=== PATIENT | male | born 1935 | race Caucasian/White ===

== ENCOUNTER 2017-04-14 13:49 | Day surgery (SDC) | payer MEDICARE, MEDICAID ==
[~2017-04-14] VITALS: Ht 172.7 cm; Wt 66.3 kg
[2017-04-14] VITALS (9 sets, daily range): BP systolic 80–116; BP diastolic 48–72; PULSE 63–102; TEMP 98.8–99.1
[~2017-04-14 13:49] MED LIST: 00186-0370-20 IH; ALBUTEROL0.09 MG/A4 IH; ARICEPT ODT10 MG PO; ARICEPT ODT5 MG PO; ATIVAN 0.50.5 MG/TAB PO; CELEXA40 MG PO; CODEINE; COLACE 100100 MG/CAP PO; COUMADIN 5MG5 MG/TAB PO; LANOXIN 0.25M0.25 MG PO; LORTAB 5/500 501 TAB PO; MIRALAX119G PO; MULTIPLE VITAMI1 CAP PO; NAMENDA XR PO; NAMENDA5 MG PO; NEURONTIN100 MG/CAP PO; NORCO 325 MG-51 TAB PO; OPTIVE OP; PYRIDIUM 100MG100 MG PO; PYRIDIUM200 M1 PO; TESSALON P100 MG/CAP PO; TOPAMAX50 MG PO; TYLENOL 500MG500 MG PO; TYLENOL EXTRA500 M1 PO; TYLENOL PM EXTR1 CAP PO; TYLENOL W/COD1 UDTAB PO; ULTRAM 50MG TAB50 MG PO; ZANTAC 150MG T150 MG PO; ZOCOR 40MG40 MG PO; ZYLOPRIM 100MG100 MG PO; ZYPREXA2.5 MG PO; ZYRTEC 10MG10 MG PO; [UNRECOGNIZED DRUG - OTHER]
[2017-04-14] MEDS ORDERED: PULMICORT0.25 MG/2 IH ×2 (15:19→15:20)
[2017-04-14] MEDS ORDERED: IPRATROPIUM BROM3 M1 IH (15:23)
[2017-04-14] MEDS ORDERED: PROVENTIL0.09 MG/A1 IH (15:24)
[2017-04-14] MEDS ORDERED: MAALOX ADVANCE148 ML PO (15:32)
[2017-04-14] MEDS ORDERED: MILK OF MA400 MG/52 PO (15:33)
[2017-04-14] MEDS ORDERED: NORCO 325 MG-51 TAB PO (15:35)
[2017-04-14] MEDS ORDERED: CELEXA40 MG PO (15:40)
[2017-04-14] MEDS ORDERED: CLARITIN 1010 MG/TAB PO (15:42)
[2017-04-14] MEDS ORDERED: FENTANYL 12MCG TD (15:45)
[2017-04-14] MEDS ORDERED: FOSAMAX 70MG TA70 MG PO (15:47)
[2017-04-14] MEDS ORDERED: LASIX 40MG TABL40 MG PO (15:48)
[2017-04-14] MEDS ORDERED: ATIVAN 1MG T1 MG/TAB PO (15:50)
[2017-04-14] MEDS ORDERED: MELATONIN5 M1 SL (15:51)
[2017-04-14] MEDS ORDERED: NAMENDA XR PO (15:55)
[2017-04-14] MEDS ORDERED: NICODERM C21 MG/PATC TD (15:56)
[2017-04-14] MEDS ORDERED: ZYPREXA2.5 MG PO (15:57)
[2017-04-14] MEDS ORDERED: ELIQUIS 2.5 PO (16:03)
[2017-04-14] MEDS ORDERED: CIPRO 500MG TA500 MG PO (16:06)
[2017-04-14] MEDS ORDERED: BEVESPI AEROS10.7 GM IH (16:06)
[2017-04-14] MEDS ORDERED: K-DUR 10 MEQ T10 MEQ PO (16:08)
[2017-04-14 17:08] LABS: BASO % 0.3 % (0.0-2.0); EOS # 0.5 (0.0-0.7); EOS % 7.2 % (0-4.0); GRAN # 4.9 (1.4-6.5); GRAN % 69.7 % (42.2-75.2); HEMATOCRIT 36.5 % (42.0-52.0); LYMPH % 13.9 % (20.0-51.0); MEAN CELL VOLUME 95 fl (80.0-100.0); MEAN CORPUSCULAR HEMOGLOBIN 31 pg (27.0-31.0); MEAN CORPUSCULAR HGB CONC 33 g/dl (33.0-37.0); MEAN PLATELET VOLUME 10.7 fl (7.4-10.4); MONO # 0.6 (0.1-0.6); MONO % 8.6 % (1.7-9.3); PLATELET COUNT 146 K/mm3 (130-400); RED BLOOD COUNT 3.83 M/mm3 (4.20-5.60); WHITE BLOOD COUNT 7.1 K/mm3 (4.8-10.8)
[2017-04-14 17:12] LABS: CALCIUM 9.2 mg/dL (8.4-10.2); CREATININE, serum 1.2 mg/dL (0.66-1.25); POTASSIUM 3.8 mmol/L (3.4-5.0)
[2017-04-15 00:20] VITALS: BP 132/85; PULSE 91; TEMP 98.9
== END 2017-04-15 00:50 | disposition home or self-care (01) ==
LOC: SDCO 13:49 → SURG 17:25 → SDCO 04-15 00:50
PROVIDERS: Urology
DX: N13.2 Hydronephrosis with renal and ureteral calculous obstruction (principal); I25.2 Old myocardial infarction; I11.0 Hypertensive heart disease with heart failure; I50.9 Heart failure, unspecified; Z95.0 Presence of cardiac pacemaker; I38 Endocarditis, valve unspecified; J44.9 Chronic obstructive pulmonary disease, unspecified; K21.9 Gastro-esophageal reflux disease without esophagitis; R12 Heartburn; G30.9 Alzheimer's disease, unspecified; F02.80 Dementia in other diseases classified elsewhere, unspecified severity, without behavioral disturbance, psychotic disturbance, mood disturbance, and anxiety; F32.9 Major depressive disorder, single episode, unspecified; F41.9 Anxiety disorder, unspecified; Z87.39 Personal history of other diseases of the musculoskeletal system and connective tissue; I25.10 Atherosclerotic heart disease of native coronary artery without angina pectoris; E78.00 Pure hypercholesterolemia, unspecified; Z85.828 Personal history of other malignant neoplasm of skin; Z79.01 Long term (current) use of anticoagulants
CPT/HCPCS: OP; C1769; C2617; J0690; J1100; J2270; J2405; J2704; J3010; Q9967

== ENCOUNTER 2017-04-29 08:48 | Observation (INO) | payer MEDICARE, MEDICAID ==
[~2017-04-29] VITALS: Ht 172.7 cm; Wt 64.8 kg
[2017-04-29] VITALS (10 sets, daily range): BP systolic 91–117; BP diastolic 54–855; PULSE 57–105; TEMP 98–98.5
[~2017-04-29 08:48] MED LIST changes: +ATIVAN 1MG T1 MG/TAB PO; +BEVESPI AEROS10.7 GM IH; +CIPRO 500MG TA500 MG PO; +CLARITIN 1010 MG/TAB PO; +ELIQUIS 2.5 PO; +FENTANYL 12MCG TD; +FOSAMAX 70MG TA70 MG PO; +IPRATROPIUM BROM3 M1 IH; +K-DUR 10 MEQ T10 MEQ PO; +LASIX 40MG TABL40 MG PO; +MAALOX ADVANCE148 ML PO; +MELATONIN5 M1 SL; +MILK OF MA400 MG/52 PO; +NICODERM C21 MG/PATC TD; +PROVENTIL0.09 MG/A1 IH; +PULMICORT0.25 MG/2 IH
[2017-04-29] MEDS ORDERED: CEFACLOR PO (10:04)
[2017-04-29] MEDS ORDERED: FOSAMAX 70MG TA70 MG PO (10:57)
[2017-04-29] MEDS ORDERED: MULTI VITAMINS1 TAB PO (10:59)
[2017-04-29] MEDS ORDERED: ELIQUIS 5MG PO (11:04)
[2017-04-29 17:22] LABS: HEMATOCRIT 34.1 % (42.0-52.0); HEMOGLOBIN 10.6 g/dl (13.5-18.0); MEAN CELL VOLUME 97 fl (80.0-100.0); MEAN CORPUSCULAR HEMOGLOBIN 30 pg (27.0-31.0); MEAN CORPUSCULAR HGB CONC 31 g/dl (33.0-37.0); MEAN PLATELET VOLUME 10.1 fl (7.4-10.4); PLATELET COUNT 167 K/mm3 (130-400); REDCELL DISTRIBUTION WIDTH-CV 13.6 % (11.5-14.5)
[2017-04-29 17:33] LABS: ALBUMIN 3.4 gm/dL (3.5-5.0); BILIRUBIN,TOTAL 0.5 mg/dL (0.0-1.0); CALCIUM 8.8 mg/dL (8.4-10.2); CREATININE, serum 0.91 mg/dL (0.66-1.25); POTASSIUM 4.8 mmol/L (3.4-5.0); TOTAL PROTEIN 6.6 gm/dL (6.4-8.2)
[2017-04-29 17:44] LABS: BAND 6 % (0-10); EOSINOPHIL 1 % (0-4); LYMPHOCYTE 8 % (20.0-51.0); NEUTROPHILS 83 % (42.0-75.2); PLATELET ESTIMATE NORMAL (NORMAL)
[2017-04-29 18:02] LABS: TSH w REFLEX 0.873 uIU/mL (0.465-4.680)
[2017-04-30 01:40] VITALS: BP 91/54; PULSE 74; TEMP 98.6
[2017-04-30 05:33] VITALS: BP 93/53; PULSE 73; TEMP 98.2
[2017-04-30] MEDS ORDERED: TYLENOL 325MG325 MG PO (09:57)
[2017-04-30] MEDS ORDERED: FENTANYL 12MCG TD (09:59)
[2017-04-30] MEDS ORDERED: NORCO 325 MG-51 TAB PO (09:59)
[2017-04-30] MEDS ORDERED: ATIVAN 1MG T1 MG/TAB PO (09:59)
[2017-04-30 10:00] VITALS: BP 90/41; PULSE 58; TEMP 98.2
[2017-04-30 10:06] LABS: BASO % 0.1 % (0.0-2.0); EOS # 0.1 (0.0-0.7); EOS % 1.5 % (0-4.0); GRAN # 6.5 (1.4-6.5); GRAN % 80.6 % (42.2-75.2); LYMPH % 12.3 % (20.0-51.0); MEAN CELL VOLUME 96 fl (80.0-100.0); MEAN CORPUSCULAR HGB CONC 32 g/dl (33.0-37.0); MEAN PLATELET VOLUME 9.8 fl (7.4-10.4); MONO # 0.4 (0.1-0.6); MONO % 5.1 % (1.7-9.3); PLATELET COUNT 169 K/mm3 (130-400); RED BLOOD COUNT 3.34 M/mm3 (4.20-5.60); REDCELL DISTRIBUTION WIDTH-CV 13.6 % (11.5-14.5)
[2017-04-30 10:14] LABS: HEMATOCRIT 32.1 % (42.0-52.0); HEMOGLOBIN 10.3 g/dl (13.5-18.0); MEAN CORPUSCULAR HEMOGLOBIN 31 pg (27.0-31.0)
[2017-04-30 14:25] VITALS: BP 96/44; PULSE 65; TEMP 97.6
[2017-04-30 18:01] VITALS: BP 105/50; PULSE 73; TEMP 98.5
[2017-04-30 21:21] VITALS: BP 112/64; PULSE 80; TEMP 98.2
[2017-05-01 05:53] VITALS: BP 95/54; PULSE 74; TEMP 97.8
[2017-05-01 08:15] VITALS: BP 123/74
[2017-05-01 10:03] VITALS: BP 93/49; PULSE 85; TEMP 98.9
[2017-05-01 11:15] VITALS: BP 98/58; PULSE 80
[2017-05-01 12:24] VITALS: BP 98/58; PULSE 80; TEMP 98.9
== END 2017-05-01 13:45 ==
LOC: SDCO 08:48 → SURG 12:45 → SDCO 14:04 → SURG 14:04
PROVIDERS: Nurse Practitioner Family
DX: N20.1 Calculus of ureter (principal); I97.89 Other postprocedural complications and disorders of the circulatory system, not elsewhere classified; I48.91 Unspecified atrial fibrillation; D64.9 Anemia, unspecified; R00.2 Palpitations; Z79.01 Long term (current) use of anticoagulants; Z95.0 Presence of cardiac pacemaker; G30.9 Alzheimer's disease, unspecified; F02.80 Dementia in other diseases classified elsewhere, unspecified severity, without behavioral disturbance, psychotic disturbance, mood disturbance, and anxiety; I34.0 Nonrheumatic mitral (valve) insufficiency; K86.1 Other chronic pancreatitis; I25.2 Old myocardial infarction; Z87.442 Personal history of urinary calculi; E78.5 Hyperlipidemia, unspecified; J44.9 Chronic obstructive pulmonary disease, unspecified; K21.9 Gastro-esophageal reflux disease without esophagitis; F32.9 Major depressive disorder, single episode, unspecified; F41.9 Anxiety disorder, unspecified; Z88.0 Allergy status to penicillin; Z88.8 Allergy status to other drugs, medicaments and biological substances; M10.9 Gout, unspecified; R56.9 Unspecified convulsions; G89.29 Other chronic pain; M81.0 Age-related osteoporosis without current pathological fracture; K59.00 Constipation, unspecified; G47.00 Insomnia, unspecified; I25.10 Atherosclerotic heart disease of native coronary artery without angina pectoris; J84.10 Pulmonary fibrosis, unspecified; Z87.891 Personal history of nicotine dependence; I50.9 Heart failure, unspecified; N39.0 Urinary tract infection, site not specified; Z85.828 Personal history of other malignant neoplasm of skin
CPT/HCPCS: 99223; 99232-AI; C1769; G0378; G8978-GP; G8979-GP; J1100; J1160; J2704; J3010